=== PATIENT | male | born 1940 | race Caucasian/White ===

== ENCOUNTER 2018-05-19 07:45 | Emergency (ER) | payer MEDICARE, OTHER ==
[~2018-05-19] VITALS: Ht 180.3 cm; Wt 89.4 kg
[~2018-05-19 07:45] MED LIST: ATOR40TA78 PO; CARI250T9 PO; HYDR-3237 PO; LISI-167 PO; LISI2.5T PO; OXYC-302 PO; SIMV5TAB5 PO; TAMS0.4C2 PO; VIT1TABL32 PO; VITA1TAB13 PO; [UNRECOGNIZED DRUG - OTHER] PO
[2018-05-19] MEDS ORDERED: CHOL400C PO (08:16)
[2018-05-19] MEDS ORDERED: TAMSULOSIN 0.4 MG CAP.ER.24H ONE (08:22)
[2018-05-19] MEDS ORDERED: HYDROmorphone 2 MG/ML, 1ML ONE (08:22)
[2018-05-19] MEDS ORDERED: ONDANSETRON 2MG/ML, 2ML ONE (08:22)
[2018-05-19] MEDS ORDERED: ONDANSETRON 2MG/ML, 2ML IVPush ONE (08:30)
[2018-05-19] MEDS ORDERED: TAMSULOSIN 0.4 MG CAP.ER.24H PO ONE (08:30)
[2018-05-19] MEDS ORDERED: HYDROmorphone 1 MG/ML, 1ML IVPush PRN (08:30)
[2018-05-19 08:35] LABS: BASOPHILS # (AUTO) 0.03 x10^3/uL (0-0.1); BASOPHILS % (AUTO) 0 % (0-1); EOSINOPHILS % (AUTO) 2 % (1-7); LYMPHOCYTES # (AUTO) 2.09 x10^3/uL (1-3.4); LYMPHOCYTES % (AUTO) 18 % (22-44); MD NO; MEAN CORPUSCULAR HEMOGLOBIN 31.1 pg (27.5-34.5); MEAN CORPUSCULAR HGB CONC 33.6 g/dL (33.2-36.2); MEAN CORPUSCULAR VOLUME 92.7 fL (81-97); MEAN PLATELET VOLUME 9.3 fL (7.4-10.4); MONOCYTES # (AUTO) 1.16 x10^3/uL (0.2-0.8); MONOCYTES % (AUTO) 10 % (2-9); NEUTROPHILS # (AUTO) 7.96 x10^3/uL (1.8-6.8); NEUTROPHILS % (AUTO) 70 % (42-75); PLATELET COUNT 185 x10^3/uL (130-400); RED BLOOD COUNT 5.75 x10^6/uL (4.38-5.82); RED CELL DISTRIBUTION WIDTH 12.9 % (9.4-14.8)
[2018-05-19 08:42] LABS: ALANINE AMINOTRANSFERASE 48 U/L (12-78); ALBUMIN 4.3 g/dL (3.4-5.0); ANION GAP 12 mmol/L (5-15); CHLORIDE 108 mmol/L (98-107); CREATININE 1.31 mg/dL (0.7-1.3)
[2018-05-19 08:44] LABS: ALKALINE PHOSPHATASE 73 U/L (45-117); BILIRUBIN,TOTAL 1.2 mg/dL (0.2-1.0)
[2018-05-19 08:48] LABS: MICROSCOPIC INDICATED
[2018-05-19 08:49] LABS: CULTURE INDICATED? YES
[2018-05-19] MEDS ORDERED: KETOROLAC 30 MG/1 ML ONE (09:00)
[2018-05-19] MEDS ORDERED: KETOROLAC 30 MG/1 ML IVPush ONE (09:00)
[2018-05-19 09:50] VITALS: BP 131/73
== END 2018-05-19 10:09 | disposition home or self-care (01) ==
LOC: ED 08:21
DX: N13.2 Hydronephrosis with renal and ureteral calculous obstruction (principal); I10 Essential (primary) hypertension; E78.5 Hyperlipidemia, unspecified; Z88.5 Allergy status to narcotic agent
CPT/HCPCS: 36415; 74176; 80053; 81001; 85025; 87086; 96374; 96375; 99285; J1170; J1885; J2405

== ENCOUNTER → 2018-07-10 | Outpatient (CLI) | payer MEDICARE, OTHER ==
[~2018-07-10] MED LIST changes: +ATOR40TA PO; +CHOL400C PO; +CHOL5000 PO; +[UNRECOGNIZED DRUG - OTHER] PO
== END | disposition home or self-care (01) ==
LOC: STAR 10:12
PROVIDERS: ATTEND Urology
DX: Z01.818 Encounter for other preprocedural examination (principal); N20.0 Calculus of kidney
CPT/HCPCS: 93005

== ENCOUNTER 2018-07-19 11:23 | Day surgery (SDC) | payer MEDICARE, OTHER ==
[~2018-07-19] VITALS: Ht 180.3 cm; Wt 86.7 kg
[~2018-07-19 11:23] MED LIST changes: +CIPROFLOXACIN/PMX 400MG/200ML 200 ML ONE
[2018-07-19] MEDS ORDERED: LACTATED RINGERS 1,000 ML IV SCH (13:00)
[2018-07-19] MEDS ORDERED: FENTANYL PF 100 MCG/2ML ONE (13:13)
[2018-07-19] MEDS ORDERED: FENTANYL PF 100 MCG/2ML IV PRN (13:30)
[2018-07-19] MEDS ORDERED: ACETAMINOPHEN 325 MG TABLET PO PRN (13:30)
[2018-07-19] MEDS ORDERED: HALOPERIDOL 5 MG/ML IV PRN (13:30)
[2018-07-19] MEDS ORDERED: HYDROmorphone 1 MG/ML, 1ML IV PRN (13:30)
[2018-07-19] MEDS ORDERED: hydrALAzine 20 MG/ML, 1ML IV PRN (13:30)
[2018-07-19] MEDS ORDERED: MEPERIDINE/PF 25MG/0.5ML IVPush PRN (13:30)
[2018-07-19] MEDS ORDERED: PROCHLORPERAZINE 5 MG/ML, 2ML IV PRN (13:30)
[2018-07-19] MEDS ORDERED: DIPHENHYDRAMINE 50 MG/ML, 1ML IVPush PRN (13:30)
[2018-07-19] MEDS ORDERED: LABETALOL 5MG/ML, 20ML IV PRN (13:30)
[2018-07-19] MEDS ORDERED: OXYcodone 5 MG/5 ML ORAL.SOL UDC PO PRN (13:30)
[2018-07-19] MEDS ORDERED: CEFAZOLIN 1,000 MG ONE (15:14)
[2018-07-19] MEDS ORDERED: ONDANSETRON 2MG/ML, 2ML ONE (15:14)
[2018-07-19] MEDS ORDERED: DEXAMETHASONE 4 MG/ML, 1ML ONE (15:14)
[2018-07-19] MEDS ORDERED: PROPOFOL 10 MG/ML, 20ML ONE (15:14)
[2018-07-19] MEDS ORDERED: OXYcodone/APAP 5/325MG TABLET PO PRN (16:00)
== END 2018-07-19 17:35 | disposition home or self-care (01) ==
LOC: OUT 11:23
PROVIDERS: ATTEND Urology
DX: N20.0 Calculus of kidney (principal); I10 Essential (primary) hypertension; E78.5 Hyperlipidemia, unspecified; Z88.6 Allergy status to analgesic agent
CPT/HCPCS: 50590; J0690; J0744; J1100; J2405; J2704; J3010; J7120

== ENCOUNTER 2020-04-02 09:41 | Emergency (ER) | payer MEDICARE, OTHER ==
[~2020-04-02] VITALS: Ht 180.3 cm; Wt 82.9 kg
[~2020-04-02 09:41] MED LIST changes: -CIPROFLOXACIN/PMX 400MG/200ML 200 ML ONE; +SIMV5TAB14 PO; -SIMV5TAB5 PO
[2020-04-02 10:26] LABS: BASOPHILS # (AUTO) 0.03 x10^3/uL (0-0.1); BASOPHILS % (AUTO) 1 % (0-1); EOSINOPHILS # (AUTO) 0.08 x10^3/uL (0-0.4); EOSINOPHILS % (AUTO) 2 % (1-7); LYMPHOCYTES # (AUTO) 1.07 x10^3/uL (1-3.4); LYMPHOCYTES % (AUTO) 20 % (22-44); MD NO; MEAN CORPUSCULAR HEMOGLOBIN 30.8 pg (27.5-34.5); MEAN CORPUSCULAR VOLUME 93.3 fL (81-97); MEAN PLATELET VOLUME 8.7 fL (7.4-10.4); MONOCYTES # (AUTO) 0.61 x10^3/uL (0.2-0.8); MONOCYTES % (AUTO) 12 % (2-9); NEUTROPHILS # (AUTO) 3.55 x10^3/uL (1.8-6.8); NEUTROPHILS % (AUTO) 67 % (42-75); PLATELET COUNT 174 x10^3/uL (130-400); RED BLOOD COUNT 5.51 x10^6/uL (4.38-5.82); RED CELL DISTRIBUTION WIDTH 15.1 % (9.4-14.8)
[2020-04-02] MEDS ORDERED: MECLIZINE CHEWABLE 25 MG TAB PO ONE (10:30)
[2020-04-02] MEDS ORDERED: MECLIZINE CHEWABLE 25 MG TAB ONE (10:30)
--- NOTE | 2020-04-02 10:33 | NUR ---
Medications provided per EMAR at this time. NADN. Pt c/o dizziness without headache at this time. Dizziness and headache began at 0200 today with nausea. Pt denies nausea at this time. CMS intact, no neuro defecits observed. Pt connected to NIBP cuff, continous pulse ox monitor, and monitor and storage bin tender, bedrails up x 2 for safety measures and call light within reach. No other needs expressed at this time.
[2020-04-02 10:37] LABS: ALANINE AMINOTRANSFERASE 48 U/L (12-78); ALBUMIN 3.9 g/dL (3.4-5.0); ANION GAP 7 mmol/L (5-15); CHLORIDE 109 mmol/L (98-107)
[2020-04-02 10:39] LABS: ALKALINE PHOSPHATASE 75 U/L (45-117); BILIRUBIN,TOTAL 1.1 mg/dL (0.2-1.0); TOTAL PROTEIN 7.7 g/dL (6.4-8.2)
--- NOTE | 2020-04-02 11:28 | NUR ---
Pt states his dizziness has "subsided but is still there". NADN. No needs expressed.
[2020-04-02] MEDS ORDERED: DIAZEPAM 5 MG TABLET ONE (11:59)
[2020-04-02] MEDS ORDERED: DIAZEPAM 5 MG TABLET PO ONE (12:00)
--- NOTE | 2020-04-02 12:57 | NUR ---
Pt states relief of dizziness s/p medication admin per EMAR. NADN. No other needs expressed.
[2020-04-02 13:12] VITALS: BP 129/80
--- NOTE | 2020-04-02 13:13 | NUR ---
Updated on plan of care. All questions answered.
--- NOTE | 2020-04-02 13:20 | NUR ---
AMBULATED PT WITH STEADY GAIT, NOTIFIED.
== END 2020-04-02 13:35 | disposition other institution (70) ==
LOC: ED 10:21
DX: H81.399 Other peripheral vertigo, unspecified ear (principal); E78.5 Hyperlipidemia, unspecified; R11.0 Nausea; R53.1 Weakness; R94.31 Abnormal electrocardiogram [ECG] [EKG]; I10 Essential (primary) hypertension; Z90.89 Acquired absence of other organs
CPT/HCPCS: 36415; 70551; 80053; 85025; 93005; 99285

== ENCOUNTER → 2020-07-25 | Outpatient (CLI) | payer MEDICARE, OTHER ==
[~2020-07-25] MED LIST changes: +GADOTERATE 7.5 MMOL/15 ML SYR ONE
[2020-07-25 15:36] LABS: BASOPHILS % (AUTO) 0 % (0-1); EOSINOPHILS % (AUTO) 2 % (1-7); LYMPHOCYTES % (AUTO) 22 % (22-44); MEAN CORPUSCULAR HEMOGLOBIN 31.5 pg (27.5-34.5); MEAN CORPUSCULAR HGB CONC 33.8 g/dL (33.2-36.2); MEAN PLATELET VOLUME 9.4 fL (7.4-10.4); MONOCYTES % (AUTO) 11 % (2-9); NEUTROPHILS % (AUTO) 65 % (42-75); PLATELET COUNT 185 x10^3/uL (130-400); RED BLOOD COUNT 5.36 x10^6/uL (4.38-5.82); RED CELL DISTRIBUTION WIDTH 13.2 % (9.4-14.8)
[2020-07-25 15:37] LABS: MD NO
== END | disposition home or self-care (01) ==
LOC: RAD 13:32
PROVIDERS: ATTEND Student in an Organized Health Care Education/Training Program
DX: M19.032 Primary osteoarthritis, left wrist (principal); M65.88 Other synovitis and tenosynovitis, other site
CPT/HCPCS: 36415; 73223; 85025; 85651; 86140; A9575

== ENCOUNTER 2021-06-30 11:30 | Emergency (ER) | payer MEDICARE, OTHER ==
[~2021-06-30] VITALS: Ht 180.3 cm; Wt 81.8 kg
[~2021-06-30 11:30] MED LIST changes: -GADOTERATE 7.5 MMOL/15 ML SYR ONE; -LISI2.5T PO; +LISI2.5T12 PO; -OXYC-302 PO; +OXYC1TAB12 PO
--- NOTE | 2021-06-30 11:35 | NUR ---
PT BIB EMS FOR RIGHT HIP/UPPER LEG PAIN. 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 PT ACCOMPANIED BY SPOUSE. PT PIV 18 GA LFA BY EMS [facility] STARTER. PT REC'VD 100 MCG OF FENTANYL BY EMS [employer] ST[employer]. PHYSICAL ASSESSMENT AND VS OBTAINED. RAILS UP, CALL LIGHT WITHIN REACH.
[2021-06-30] MEDS ORDERED: HYDROmorphone 2 MG/ML, 1ML ONE (12:35)
[2021-06-30] MEDS ORDERED: KETOROLAC 30 MG/1 ML ONE (12:35)
[2021-06-30] MEDS ORDERED: ONDANSETRON 2MG/ML, 2ML ONE (12:35)
[2021-06-30 12:55] LABS: MICROSCOPIC NOT IND
--- NOTE | 2021-06-30 12:56 | NUR ---
TASK RN NOTE: PER PT'S PRIMARY RN YOSELIN, ALL MEDS ADMINISTERED FOR PT'S COMFORT. NAD NOTED AT THIS TIME. CURRENTLY BEING TAKEN TO IMAGING.
[2021-06-30] MEDS ORDERED: SODIUM CHLORIDE FLUSH 10ML SYR IVF ONE (13:00)
[2021-06-30] MEDS ORDERED: KETOROLAC 30 MG/1 ML IVPush ONE (13:00)
[2021-06-30] MEDS ORDERED: HYDROmorphone 1 MG/ML, 1ML INJ IV ONE (13:00)
[2021-06-30] MEDS ORDERED: ONDANSETRON 2MG/ML, 2ML IVPush ONE (13:00)
--- NOTE | 2021-06-30 13:20 | NUR ---
TASK RN NOTE: PT LAYING FLAT IN BED, RESPIRATIONS EVEN AND UNLABORED ON RA. PT REPORTS SOME PAIN RELIEF FROM MEDICATIONS GIVEN BY PRIMARY RN. SIDE RAILS UP, CALL LIGHT IN REACH. VSS.
[2021-06-30 14:17] VITALS: BP 147/65
--- NOTE | 2021-06-30 14:42 | NUR ---
PT AND SPOUSE REC'VD DISCHARGE INSTRUCTIONS AND EDUCATION. PT HAD NO FURTHER QUESTIONS. PT IN WHEELCHAIR TO DC AREA WITH SPOUSE.
== END 2021-06-30 14:48 | disposition home or self-care (01) ==
LOC: ED 14:20
DX: M54.16 Radiculopathy, lumbar region (principal); M54.5 Low back pain; M25.551 Pain in right hip; I10 Essential (primary) hypertension; E78.5 Hyperlipidemia, unspecified; Z88.5 Allergy status to narcotic agent
CPT/HCPCS: 72110; 81003; 96374; 96375; 99284; J1170; J1885; J2405; J7512